=== PATIENT | male | born 2000 | race Caucasian/White ===

== ENCOUNTER 2025-03-16 09:11 | Emergency (ER) | payer OTHER ==
[2025-03-16 09:55] VITALS: TEMP 98.9; O2SAT 98
[2025-03-16 10:13] VITALS: BP 182/92; PULSE 92; RESP 18; O2SAT 99
[2025-03-16] MEDS: ONDANSETRON HCL 4 MG/2 ML VIAL IVP ONE (10:13)
[2025-03-16] MEDS: CeFAZolin 1 GM/DEXTROSE 50 ML IV ONE (10:13)
[2025-03-16] MEDS: PERTUSS(ACELL),DIPH,TET/PF 0.5 ML SYRINGE [ADULT] IM. ONE (10:13)
[2025-03-16] MEDS: MORPHINE SULFATE 4 MG/ML SYRINGE IVP ONE (10:13)
== END 2025-03-16 10:18 | disposition short-term general hospital (02) ==
LOC: EMS 09:11
DX: S42.202A Unspecified fracture of upper end of left humerus, initial encounter for closed fracture (principal); S09.90XA Unspecified injury of head, initial encounter; W13.8XXA Fall from, out of or through other building or structure, initial encounter; S59.902A Unspecified injury of left elbow, initial encounter; Y93.89 Activity, other specified; Y92.89 Other specified places as the place of occurrence of the external cause; Y99.8 Other external cause status
CPT/HCPCS: 99291; 96374; 96375; 71045; 73020; 90715; 90471; J0690; J2270; J2405